=== PATIENT | female | born 1960 | race African-American/Black ===

== ENCOUNTER 2022-05-16 08:37 | Day surgery (SDC) | payer BC ==
[2022-05-09 15:17] VITALS: BMI 21.6
[2022-05-16 09:22] VITALS: RESP 18; TEMP 98.2
[2022-05-16] MEDS ORDERED: LIDOCAINE HCL/PF 2% SDV 5ML VIAL ONE (10:16)
[2022-05-16] MEDS ORDERED: PROPOFOL 80 ML ONE (10:16)
[2022-05-16 12:26] VITALS: PULSE 68
[2022-05-16 12:28] VITALS: BP 105/68
== END 2022-05-16 11:30 | disposition home or self-care (01) ==
LOC: FASU-ENDO 08:37
PROVIDERS: ATTEND Internal Medicine Gastroenterology
PROC: 0DBN8ZX Excision of Sigmoid Colon, Via Natural or Artificial Opening Endoscopic, Diagnostic (ICD-10-PCS; principal; 2022-05-16 10:11)
DX: Z12.11 Encounter for screening for malignant neoplasm of colon (principal); K63.5 Polyp of colon; Z80.0 Family history of malignant neoplasm of digestive organs; Z83.71 Family history of colonic polyps; K64.1 Second degree hemorrhoids
CPT/HCPCS: 88305-TC